=== PATIENT | male | born 1990 | race African-American/Black ===

== ENCOUNTER 2023-08-26 18:22 | Emergency (ER) | payer OTHER ==
[2023-08-26 18:28] VITALS: BP 122/70; PULSE 73; RESP 18; TEMP 99; BMI 26.2
[2023-08-26] MEDS ORDERED: CLINDAMYCIN HCL 150 MG CAPSULE (FP) ONE (20:28)
[2023-08-26] MEDS ORDERED: IBUPROFEN 600 MG TABLET (FP) PO ONE (20:28)
[2023-08-26] MEDS: CLINDAMYCIN HCL 300 MG CAPSULE PO ONE (20:30)
[2023-08-26] MEDS: IBUPROFEN 400 MG TABLET (FP) PO ONE (20:30)
== END 2023-08-26 20:49 | disposition home or self-care (01) ==
LOC: JERFT 18:22 → JER 18:22 → JERFT 20:49
DX: K08.89 Other specified disorders of teeth and supporting structures (principal)
CPT/HCPCS: 99283-25